=== PATIENT | male | born 1985 | race Caucasian/White ===

== ENCOUNTER 2018-08-02 11:53 | Emergency (ER) | payer MEDICAID, OTHER ==
[2018-08-02] MEDS: METOCLOPRAMIDE 10 MG INJ IV (14:40)
[2018-08-02] MEDS: DIPHENHYDRAMINE 50 MG INJ IV (14:40)
[2018-08-02] MEDS: ACETAMINOPHEN 500 MG TAB PO (14:40)
[2018-08-02] MEDS: SOD CHLORIDE 0.9% 1,000 ML IV (14:42)
[2018-08-02 14:43] LABS: ADD MAN DIFF? NO
[2018-08-02 14:47] LABS: BASOPHILS % 0.4 % (0.0-2.0); EOSINOPHILS % 0.1 % (0.0-7.0); HEMATOCRIT 46.8 % (42.0-52.0); HEMOGLOBIN 16.3 g/dl (14.0-18.0); LYMPHOCYTES # 1.8 10^3/ul (0.8-2.9); LYMPHOCYTES % 18.3 % (15.0-51.0); MEAN CORPUSCULAR HEMOGLOBIN 28.2 pg (29.0-33.0); MEAN CORPUSCULAR HGB CONC 34.8 g/dl (32.0-37.0); MEAN CORPUSCULAR VOLUME 80.8 fl (82.0-101.0); MEAN PLATELET VOLUME 8.9 fl (7.4-10.4); MONOCYTE # 0.7 10^3/ul (0.3-0.9); MONOCYTES % 7.1 % (0.0-11.0); NEUTROPHIL # 7.3 10^3/ul (1.6-7.5); NEUTROPHILS % 73.7 % (39.0-77.0); PLATELET COUNT 332 10^3/UL (140-415); RED BLOOD COUNT 5.79 10^6/ul (4.70-6.10)
[2018-08-02 14:47] LABS: WHITE BLOOD COUNT 9.9 10^3/ul (4.8-10.8)
[2018-08-02 15:06] LABS: ANION GAP 18 (8-16); BLOOD UREA NITROGEN 12 mg/dl (7-20); CALCIUM 9.9 mg/dl (8.4-10.2); CARBON DIOXIDE 26 mmol/L (21-31); CHLORIDE 101 mmol/L (97-110); CREATININE 0.63 mg/dl (0.61-1.24); GLUCOSE 100 mg/dl (70-220); POTASSIUM 4.1 mmol/L (3.5-5.1); SODIUM 141 mmol/L (135-144)
[2018-08-02 15:09] LABS: INR 0.98; PARTIAL THROMBOPLASTIN TIME 25.6 Sec (25.0-35.0); PROTIME 13.1 Sec (11.9-14.9)
[2018-08-02] MEDS: SOD CHLORIDE 0.9% 100 ML (16:50)
[2018-08-02] MEDS: IOHEXOL 100 ML (16:50)
[2018-08-02 22:37] LABS: AMPHETAMINE/METHAMPHETAMINE Negative (NEGATIVE); BARBITURATES Negative (NEGATIVE); BENZODIAZEPINES Negative (NEGATIVE); CANNABINOIDS Negative (NEGATIVE); COCAINE Negative (NEGATIVE); OPIATES Negative (NEGATIVE)
== END 2018-08-02 22:40 | disposition short-term general hospital (02) ==
LOC: FTE 11:53 → E/R 22:40
DX: I60.9 Nontraumatic subarachnoid hemorrhage, unspecified (principal); R40.2142 Coma scale, eyes open, spontaneous, at arrival to emergency department; R40.2362 Coma scale, best motor response, obeys commands, at arrival to emergency department; R40.2252 Coma scale, best verbal response, oriented, at arrival to emergency department; I67.1 Cerebral aneurysm, nonruptured
CPT/HCPCS: 36415; 70450; 70496; 70498; 80048; 80307; 82962; 85025; 85610; 85730; 96374; 96375; 99291-25